=== PATIENT | female | born 1940 | race Caucasian/White ===

== ENCOUNTER → 2021-04-27 14:43 | Outpatient (BNVA) | payer MEDICARE, SELFPAY | PROVIDERS: PCP Internal Medicine; Visit Provider Urology | DX: N20.0 Calculus of kidney (principal) | CPT/HCPCS: 99212 ==

== ENCOUNTER 2025-08-25 11:22 | Outpatient (AMB) | payer MEDICARE, SELFPAY ==
--- NOTE | 2025-08-25 11:36 | MHC.OFFVIS ---
Intake Visit Reasons: 1yr f/u Allergies amoxicillin Allergy (Unknown, Verified 04/27/21 15:34) Rash codeine Allergy (Unknown, Verified 04/27/21 15:34) chest pain penicillin V Allergy (Unknown, Verified 04/27/21 15:34) itchiness Erythromycin Allergy (Unknown, Uncoded 04/27/21 15:34) itchiness Medication List - Last Reconciled 08/25/25 by Ashlee Burnett MD alendronate 70 mg PO QWEEK amlodipine 2.5 mg PO DAILY atorvastatin 40 mg PO DAILY estradiol 0.01%(0.1mg/gram) 1 g vaginal primidone 375 mg PO DAILY HPI Comments Details: This is a 85-year-old woman with mild hypertension who was had tremors in her hands for 20+ years and then , more recently, tremors in her head and jaw which has become quite bothersome. Some days it is fairly quiet and occasionally acts up for no reason an dmay last a couple of days. She's been under the care of Dr. Faith for several years and is currently on primidone 375 mg a day that helps her hands but doesn't help her jaw. Her 65 year old daughter has developed tremors which are worse than hers. There is no family history in her siblings or parents of tremors. The tremor does not actually interfere with her functional ability, but the jaw tremor is embarrassing so she limits her social interactions. She reports no side effects at this dose of primidone. [facility] Medical History (Updated 08/25/25 @ 11:41 by Ashlee Burnett MD) Benign essential tremor Review of Systems Const Details: Sleep:? Difficulty getting to sleep?admits.? Difficulty maintaining sleep?denies?.? Urge to move legs?denies.? Teeth grinding?denies.? Shouting or Kicking during sleep?denies.? Abnormal behavior during sleep?denies.? Excessive sleep?denies.? Snoring?denies.? Daytime sleepiness?denies.? ?? General/Constitutional:? Change in appetite?denies.? Chills?denies.? Fatigue?denies.? Fever?denies.? Weight gain?denies.? Weight loss?denies.? ?? Ophthalmologic:? Blurred vision?denies.? Diminished visual acuity?denies.? ?? ENT:? Stuffiness?denies.? Decreased hearing?denies.? Dry mouth?denies.? Ear pain?denies.? Nosebleed?denies.? Ringing in the ears?denies.? Sinus pain?denies.? Sore throat?denies.? Swollen glands?denies.? ?? Endocrine:? Cold intolerance?denies.? Excessive thirst?denies.? Frequent urination?denies.? Heat intolerance?denies.? ?? Respiratory:? Shortness of breath?denies.? Chest pain?denies.? Cough?denies.? ?? Breast:? Breast lump?denies.? Nipple discharge?denies.? ?? Cardiovascular:? Chest pain at rest?denies.? Chest pain with exertion?denies.? Claudication?denies.? Dizziness?denies.? Fluid accumulation in the legs?denies.? Irregular heartbeat?denies.? Palpitations?denies.? ?? Gastrointestinal:? Abdominal pain?denies.? Constipation?denies.? Diarrhea?denies.? Difficulty swallowing?denies.? Heartburn?denies.? Nausea?denies.? Rectal bleeding?denies.? ?? Hematology:? Easy bruising?denies.? Prolonged bleeding?denies.? ?? Genitourinary:? Frequent urination?denies.? Urgency?denies.? Incontinence?admits.? Erectile Dysfunction?denies.? ?? Musculoskeletal:? Neck pain?admits.? Back pain?admits.? Muscle aches?denies.? Painful joints?denies.? Sciatica?denies.? Weakness?denies.? ?? Podiatric:? Difficulty walking?denies.? Foot numbness?denies.? ?? Neurologic:? Difficulty swallowing?denies.? Balance difficulty?denies.? Coordination?normal.? Difficulty speaking?denies.? Dizziness?denies.? Fainting?denies.? Gait abnormality?denies.? Headache?admits.? Loss of strength?denies.? Loss of use of extremity?denies.? Low back pain?denies.? Memory loss?admits.? Seizures?denies.? Tics?denies.? Tingling/Numbness?denies.? Transient loss of vision?denies.? Tremor?admits.? ?? Psychiatric:? Anxiety?admits.? Auditory/visual hallucinations?denies.? Delusions?denies.? Depressed mood?denies.? Stressors?denies.? Substance abuse?denies.? Suicidal thoughts?denies.? ?? Neuro Reports tremor(s) Physical Exam Neuro Other: Neurological: ? Abnormal neurological findings:?Less prominent side to side jaw tremor with no teeth chatter. Slight head titubation tremor. Tremors of extended upper extremities. fast frequency medium amplitude..? Mental Status:?alert and oriented X 3,?Normal attention, orientation, memory and affect.? Cranial Nerves:?Pupils are equal, round and reactive to light. Fundoscopy shows normal disc bilaterally. External occular muscles are intact. Visual bravo are full, no ptosis. Face is symmetrical, no facial weakness or droop. Facial sensations are normal. Tongue protrudes in midline. Palate elevates symmetrically. Shoulder shrugging is normal..? Motor Examination:?Normal muscle tone, bulk and strength,?No atrophy or fasciculations,?No drift of the extended upper extremities,?Deep tendon reflexes are 2+?,?Plantars are flexor?.? Motor Strength:? Proximal Muscles (out of 5): ?5 ? Distal Muscles (out of 5): ?5 ? Neck Flexors (out of 5): ?5 ? Neck Extensors (out of 5): ?5 ? Deltoid (out of 5): ?5 ? Biceps (out of 5): ?5 ? Triceps (out of 5): ?5 ? Serratus Anterior (out of 5): ?5 ? Wrist Extensors (out of 5): ?5 ? APB (out of 5): ?5 ? Finger Spread (out of 5): ?5 ? Ileopsoas (out of 5): ?5 ? Quadriceps (out of 5): ?5 ? Hamstrings (out of 5): ?5 ? Tibialis Anterior (out of 5): ?5 ? Peronei (out of 5): ?5 ? EDB (out of 5): ?5 ? Gastrocnemius (out of 5): ?5 ? Straight Leg Raising:?90 degrees.? Sensory Exam:?Normal light touch, temperature, pinprick, vibration and joint-position sensations?,?Rhomberg sign is absent.? Coordination:?no ataxia,?no titubation,?[id number], [id number] test and rapid alternating movements were normal.? Gait Exam:?Within normal limits.? Cerebellar Signs:?[id number] and [id number] is normal,?no dysdiadochokinesia?.? Extrapyramidal System:?Tremor asdescribed above, no? rigidity with normal facial expressions,?No bradykinesia, no bradyphrenia. Normal arm swing and posture. No propulsion or retropulsion.? Speech:?Normal,?no dysphasia or dysarthria..? Mini Mental Status Exam: ? Level of Consciousness:?Alert.? Orientation:?Knows correct year, month, date, day and season,?Knows correct city, county and state. Knows correct location and floor.? Registration:?Able to register 3 objects.? Attention:?Serial 7's performed accurately.? Recall:?Able to recall 3 out of 3 objects.? Language:?Normal spontaneous speech, fluency, repetition,naming, comprehension, reading and writing.? Total Score:?30/30.? Assessment & Plan Assessment & Plan (1) Benign essential tremor: Code(s): G25.0 - Essential tremor Category: Medical Plan Continue Primidone 250mg 1.5 tabs daily. Medications: New primidone 375 mg (1.5 x 250 mg) PO DAILY 135 tabs 3RF 90 days Coding Level of Care Code Est Pt Level 4 (69159) Diagnoses Benign essential tremor G25.0
--- OUTSIDE RECORDS SUMMARY | 2025-08-25 15:03 | XMS_ITS | Data Portability ---
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 Luque. She reports gradual right-sided hearing loss. Right PE tube removed from external auditory canal. Right TM is intact and retracted. Right middle ear with serous effusion, confirmed with tympanometry. Left TM is normal to inspection. Audiometric testing demonstrates right-sided mild sloping to profound mixed hearing loss. Patient is medically cleared for amplification bilaterally, but is not interested at this time. Recommend trial of intranasal fluticasone and auto insufflation. Patient will follow-up for reevaluation with Dr. Luque, as she may benefit from right myringotomy tube tube replacement. dori Not available 03/30/2025 12:34:46 06/26/2025 06/26/2025 Tube replacement was performed on the right. I did attempt T-tube placement given the short-lived nature of her last couple tubes but she did not tolerate it well. She has some eardrops at home which she will use for the next few days. Follow-up in a month if her hearing is suboptimally improved - though she did note improvement after the procedure today - otherwise 6 months. deandra Not available 06/26/2025 12:39:15 Plan of Treatment Reminders Order Date Submit Date Provider Last Modified By Organization Details Last Modified Time Details Appointments Establish ed 15 2025 11:30A CAMERON RIVAS Not available Not available Not available Lab None recorded. Referral None recorded. Procedures None recorded. Surgeries None recorded. Imaging None recorded. Medication Orders fluticaso ne propionat e 50 mcg/actua tion nasal spray,paul pension 2024 025 [facility] [id number], [address] , [place], [place], [phone], 03/30/2025 11:36:29 Patient TargetsNo targets recorded. Patient InstructionsNo instructions recorded. Reason for Referral None Reported. Results Created Date Observation Date Name Description Value Unit Range Abnormal Flag Note LastModifiedBy Organization Detail LastModifiedTime 03/31/20 audio gram No observ ation record ed. BARCODE Not Available 2024 09:42:27 08/07/20 25 audio gram No observ ation record ed. BARCODE Not Available 2024 15:14:06 Result Notes None recorded. Problems Name Problem SNOMED Code Status Onset Date Resolution Date Notes Provider Name and Address Organization Details Recorded Time Bilateral disorder of Eustachia n tubes 30873857684 29947 Active 2017 Other specified disorders of Eustachia n tube, bilateral ; Note: Date Diagnosed : 8 10:37 AM (H69.83) Not Available [facility] 4 02:56:23 Impacted cerumen in right ear 33662782691 77472 Active 2017 Impacted cerumen, right ear; Note: Date Diagnosed : 8 10:31 AM (H61.21) Not Available [facility] 4 02:56:22 Disorder of right Eustachia n tube 83691846172 38437 Active 2020 Other specified disorders of Eustachia n tube, right ear; Note: Date Diagnosed : 01/20/2021 1:26 PM (H69.81) Not Available [facility] 4 02:56:24 Mixed conductiv e and sensorine ural hearing loss of right ear 30661830018 105 Active 2020 Mixed conductiv e and sensorine ural hearing loss, unilatera l, right ear with restricte d hearing on the contralat eral side; Note: Date Diagnosed : 01/20/2021 1:26 PM (H90.A31) CARLOS EDUARDO LUQUE MD [address] [place],[address], [place], [address] , [place] - [facility] 5 11:19:47 Sensorine ural hearing 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 ear 28674670254 109 Active 2020 Sensorine ural hearing loss, unilatera l, left ear, with restricte d hearing on the contralat eral side; Note: Date Diagnosed : 01/20/2021 1:26 PM (H90.A22) Not Available [facility] 4 02:56:20 Sensorine ural hearing loss of bilateral ears 654758032 Active 2022 Sensorine ural hearing loss, bilateral ; Note: Date Diagnosed : 3 1:45 PM (H90.3) Not Available [facility] 4 02:56:22 Mixed conductiv e AND sensorine ural hearing loss 99899479 Active 2023 ELSA GARZA, AUD [address], [place], [place], [address] , [place] - [facility] 4 13:49:29 Sensorine ural hearing loss 86779684 Active 2023 ELSA GARZA, AUD [address], [place], [place], [address] , [place] - [facility] 4 13:50:37 Acute serous otitis media of right ear 92492024488 91237 Active 2023 Randy darnell [place] - [facility] 4 15:07:48 Chronic serous otitis media of right ear 005669034 Active 2023 CARLOS EDUARDO LUQUE MD [address], [place], [address] , [place] - [facility] 5 11:19:51 Sensorine ural hearing loss of bilateral ears 636594767 Active 2023 Johanna darnell [place] - [facility] 10:52:55 Problem Notes None recorded. Procedures Surgical History Date Name Laterality Status Provider Name and Address Organization Details Recorded Time 08/07/20 25 Air only Audio - 66704 completed JUSTICE HERMAN [address] [facility] [place],[address] [place] [address], [address], [place] - [facility] 08/07/2025 11:36:21 08/07/20 25 Tympanometry - 91989 completed JUSTICE HERMAN [address] [facility] [place],[address] [place] [address], [address], [place] - [facility] 08/07/2025 11:36:26 06/26/20 25 Myringotomy w/Placement of Tube right completed CARLOS EDUARDO LUQUE MD [address] [facility],[address], [address], [place] - [facility] 06/26/2025 12:38:03 03/30/20 25 Air only Audio - 23412 completed JUSTICE HERMAN [address] [facility],[address], [address], [place] - [facility] 03/30/2025 11:07:55 03/30/20 25 Tympanometry - 94836 completed JUSTICE HERMAN [address] [facility],[address], [address], [place] - [facility] 03/30/2025 11:08:01 09/29/20 24 Air & Speech Audio with Tymps - 48342, 06746 & 84795 completed Johanna Sanchez [place] - [facility] 09/29/2024 10:52:26 09/01/20 24 Myringotomy w/Placement of Tube right completed CARLOS EDUARDO LUQUE MD [address] [facility],[address], [address], [place] - [facility] 09/01/2024 10:42:38 06/20/20 24 Comp Audio with Tymps - 50195 & 90506 completed JUSTICE TIM [address] [facility],[address], [address], [place] - [facility] 06/20/2024 13:49:16 Imaging Results None recorded. Procedure Notes None recorded. Medical Equipment None Reported. Allergies Allergen ID Allergen Name Allergen Category Reaction Reaction Severity Criticality Documentation Date Start Date Code Code System Note Provider Name and Address Organization Details Recorded Time 818682 amoxicill in medicatio n other Not available Not available 02/12/2024 723 RxNorm React ion: unkno wn, unspe cifie d;; Not Available [facility] 4 01:17:07 745961 penicilli n V potassium medicatio n other Not available Not available 02/12/2024 10561 5 RxNorm React ion: unkno wn, unspe cifie d;; Not Available [facility] 4 01:17:08 806948 codeine sulfate medicatio n other Not available Not available 02/12/2024 13352 RxNorm React ion: unkno wn, unspe cifie d;; Not Available [facility] 4 01:17:08 Medications Name Sig Start Date Stop Date Status Note LastModified by Organization Details LastModified Time atorvasta tin 40 mg tablet TAKE 1 TABLET BY MOUTH DAILY active Not Available Not Available No t Available primidone 50 mg tablet 06/20 completed Medicati on ID: [id number] D uration Value: 30 Brand Name: primidon e Send Method: E-Prescr ibed Sub s Allowed: subs OK Speci al Instruct ion: TAKE 1/2 TABLET AT BEDTIME, INCREASE BY 1/2 TABLET AT BEDTIME WEEKLY U P TO 2 TABS AT BEDTIME Medicati onGeneri cName: primidon e Not Available Not Available Not Available ketoconaz ole 2 % shampoo LATHER INTO FACE AND SCALP. LET SIT FOR 5 MINUTES THEN RINSE. USE EVERY OTHER DAY NEEDED FOR MAINTENA NCE. active Not Available Not Available No t Available ofloxacin 0.3 % eye drops Apply 06/20 completed Medicati on ID: [id number] B rand Name: ofloxaci n Send Method: E-Prescr ibed Sub s Allowed: subs OK Speci al Instruct ion: apply 5 drops to each ear BID x 3 days Med icationG enericNa me: ofloxaci n Not Available Not Available Not Available alendrona te 70 mg tablet TAKE 1 TABLET BY MOUTH ONCE WEEKLY 30 MINUTES BEFORE FIRST FOOD OR BEVERAGE OR MEDICINE OF THE DAY WITH WATER active Not Available Not Available No t Available fluoroura cil 5 % topical cream APPLY TO RED SCALY LESIONS ON NOSE TWICE DAILY FOR 2 WEEKS EXPECT REDNESS AND IRRITATI ON 06/26 completed Not Available Not Available Not Available Kevin Low Dose Aspirin 81 mg tablet,de layed release 2017 active Medicati on ID: [id number] B rand Name: Aspirin Low Dose Sen d Method: E-Prescr ibed Sub s Allowed: subs OK Medic ationGen ericName : Aspirin Low Dose Not Available Not Available Not Available amlodipin e 2.5 mg tablet TAKE 1 TABLET BY MOUTH EVERY DAY active Not Available Not Available No t Available simvastat in 40 mg tablet 05/04 completed Medicati on ID: [id number] D uration Value: 90 Brand Name: simvasta tin Send Method: E-Prescr ibed Sub s Allowed: subs OK Speci al Instruct ion: TAKE 1 TABLET BY MOUTH EVERY DAY Medi cationGe nericNam e: simvasta tin Not Available Not Available Not Available ofloxacin 0.3 % ear drops Instill 5 drops twice a day by otic route for 3 days. 06/26 completed Not Available Not Available Not Available primidone 250 mg tablet TAKE 1 AND 1/2 TABLETS BY MOUTH DAILY active Not Available Not Available No t Available fluocinon randall 0.05 % topical solution APPLY TOPICALL Y TO THE SCALP 1 TO 2 TIMES DAILY FOR FLAKING 06/26 completed Not Available Not Available Not Available estradiol 0.01% (0.1 mg/gram) vaginal cream USE 1 GRAM VAGINALL Y 2 TO 3 TIMES WEEKLY AT BEDTIME active Not Available Not Available No t Available fluticaso ne propionat e 50 mcg/actua tion nasal spray,paul pension INSTILL 2 SPRAYS INTO EACH NOSTRIL EVERY DAY active Not Available Not Available No t Available betametha sone dipropion ate 0.05 % lotion 06/26 completed Not Available Not Available Not Available Vitamin D3 25 mcg (1,000 unit) capsule 06/20 completed Medicati on ID: [id number] B rand Name: Vitamin D3 Send Method: E-Prescr ibed Sub s Allowed: subs OK Medic ationGen ericName : Vitamin D3 Not Available Not Available Not Available nitrofura ntoin monohydra te/macroc rystals 100 mg capsule TAKE 1 CAPSULE BY MOUTH TWICE DAILY FOR 5 DAYS 08/04 completed Not Available Not Available Not Available primidone 125 mg tablet active Not Available Not Available Not Available Vitals Date Recorded Body height Body mass index (BMI) Body weight Provider Name and Address Organization Details Last Updated DateTime 06/26/2025 154.94 cm 21.9 kg/m2 76818.71 g Roula Gibson [place] - [facility] 06/26/2025 11:21:24 Social History None recorded. Functional Status None recorded. Mental Status None recorded. Family History Nothing Reported. Medical History No medical history recorded. Gynecological HistoryNo gynecological history recorded. Obstetrics History GPAL:G 0 P 0 0 0 0 Past Encounters Encounter ID Performer Location Encounter Start Date Encounter Closed Date Diagnosis/Indication Diagnosis SNOMED-CT Code Diagnosis ICD10 Code Diagnosis IMO Codes Diagnosis Note [id number] RANDY SELBY PA-C [facility] [address] [address] 06/20/2024 12:33:01 06/20/2024 14:16:37 Bilateral disorder of Eustachian tubes 5217068720 803311 H69.83 Mixed cond uctive and sensorineural hearing loss of right ear 9005581175 9105 H90.A31 Sensorineu ral hearing 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 ear 6513928211 9109 H90.A22 Acute sero us otitis media of right ear 5832250335 032613 H65.01 [id number] JUSTICE TIM [facility] [address] [address] 06/20/2024 13:48:50 06/23/2024 07:04:21 Mixed conductive AND sensorineural hearing loss 20542379 H90.A31 Audiologic al evaluation results:Ri ght ear:Mild to moderately -severe mixed hearing loss with excellent word recognitio n.Left ear:Normal sloping to severe sensorineu ral hearing loss with excellent word recognitio n.Tympanom etry:Right Ear:Type ALeft Ear:Type C Sensorineu ral hearing loss 17371077 H90.A22 [id number] CARLOS EDUARDO LUQUE MD [facility] [address] [address] 09/01/2024 08:56:10 09/01/2024 09:24:36 Disorder of right Eustachian tube 3069243284 128488 H69.91 Mixed cond uctive and sensorineural hearing loss of right ear 7549232379 9105 H90.A31 Chronic se sakshi otitis media of right ear 713280222 H65.21 [id number] EVELINE FERREIRA PA-C [facility] [address] [address] 09/29/2024 10:22:36 09/29/2024 11:18:22 Chronic serous otitis media of right ear 704565341 H65.21 Disorder o f right Eustachian tube 6266681860 945012 H69.91 Sensorineu ral hearing loss of bilateral ears 796424903 H90.3 [id number] JUSTICE TIM [facility] [address] [address] 09/29/2024 10:51:49 10/04/2024 08:04:50 Disorder of right Eustachian tube 6169036652 498549 H69.91 Sensorineu ral hearing loss of bilateral ears 622465535 H90.3 Audiologic al evaluation results: Right ear: Normal through 1 kHz sloping to severe sensorineu ral hearing loss with excellent word recognitio n. Tympanomet ry: Right Ear:Type B with large volume Left Ear:Type C [id number] EVELINE FERREIRA PA-C [facility] [address] [address] 03/30/2025 10:29:11 03/30/2025 11:29:06 Sensorineural hearing loss of bilateral ears 354860938 H90.3 Audiologic al evaluation results: Right ear:Mild sloping to profound mixed hearing loss. Left ear:Normal sloping to severe sensorineu ral hearing loss. Tympanomet ry:Right Ear: Type BLeft Ear: Type A Disorder o f right Eustachian tube 8825113273 635599 H69.91 [id number] JUSTICE HERMAN [facility] [address] [address] 03/30/2025 11:07:15 04/06/2025 13:41:59 Mixed conductive and sensorineural hearing loss of right ear 4661542483 9105 H90.A31 Audiologic al evaluation results: Right ear: Mild sloping to profound mixed hearing loss. Left ear: Normal sloping to severe sensorineu ral hearing loss. Tympanomet ry: Right Ear:Type B Left Ear:Type A [id number] CARLOS EDUARDO LUQUE MD [facility] [address] [address] 06/26/2025 11:13:39 06/26/2025 11:40:32 Mixed conductive and sensorineural hearing loss of right ear 9642319684 9105 H90.A31 Chronic se sakshi otitis media of right ear 181882707 H65.21 [id number] CARLOS EDUARDO LUQUE MD [facility] [address] [address] 08/07/2025 10:45:56 08/07/2025 11:43:06 Disorder of right Eustachian tube 8703791227 930046 H69.91 85-year-ol d female presents today for follow-up. Right tube is in place and patent. Thresholds are now similar to the left. She is a borderline candidate for amplificat ion but feels she is doing well. Follow-up in 6 months. Sensorineu ral hearing loss of bilateral ears 599798682 H90.3 Audiologic al evaluation results: Right ear: Normal sloping to severe sensorineu ral hearing loss. Tympanomet ry: Right Ear:Type B with large volume [id number] JUSTICE HERMAN [facility] [address] [address] 08/07/2025 10:46:15 08/07/2025 13:58:14 Sensorineural hearing loss of bilateral ears 179274050 H90.3 Audiologic al evaluation results: Right ear: Normal sloping to severe sensorineu ral hearing loss. Tympanomet ry: Right Ear:Type B with large volume Health Concerns Section Related Observation LastModified by Organization Detai ls LastModified Time None Recorded Concern Status LastModified by Organization Details LastModified Time None Recorded Advance Directives Directive None Recorded Payers Insurance Date Sequence Insurance Name Policy Number Policy Johnson Covered Member ID Johnson Member ID Guarantor Name 08/17/2025 2 [employer] (MEDICARE SUPPLEMENT) Estelle Michael Bradly [id number] Estelle Abdullahi 08/17/2025 1 [place]IC[place] B-[place] [employer] Estelle Abdullahi [id number] Estelle Abdullahi Notes Date Note Type Note Provider Name and Address Organization Details Recorded Time 03/30/2025 text/html ROS as noted in the HPI 85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 Luque. She reports gradual right-sided hearing loss. Denies ear pain or drainage. CARLOS EDUARDO LUQUE MD [address] [place] [address], [address], [facility] - [facility] 03/31/2025 09:47:05 06/26/2025 text/html She has had tubes placed in 2020, May 2023, August 2024. She was last seen a couple months ago and noted to have an extruded tube and recurrence of the middle ear effusion. She is not hearing well on the right. CARLOS EDUARDO LUQUE MD [address] [place] [address],[address], [address], [facility] 06/26/2025 12:39:30 08/07/2025 text/html She feels much improved. Does not feel that the hearing is equivalent to the left. PV: She has had tubes placed in 2020, May 2023, August 2024. She was last seen a couple months ago and noted to have an extruded tube and recurrence of the middle ear effusion. She is not hearing well on the right. CARLOS EDUARDO LUQUE MD [address] [address], [place], [address], [facility] - [facility] 08/07/2025 11:45:08 OBGyn Episode No OBEpisode recorded.
--- OUTSIDE RECORDS SUMMARY | 2025-08-25 15:03 | XMS_ITS | Continuity of Care Document ---
Author Organization [place] - [facility], [facility] Address [address] [place] [address] Care Team Providers Care Child Welfare Consultant Name Role Phone LV [place] Primary Care Provider Assessment No assessment recorded. Plan of Treatment Reminders Order Date Submit Date Provider Last Modified By Organization Details Last Modified Time Details Appointments Establish ed 15 2025 11:30A M CAMERON LEY Not available Not available Not available Lab None recorded. Referral None recorded. Procedures None recorded. Surgeries None recorded. Imaging None recorded. Medication Orders None recorded. Patient TargetsNo targets recorded. Patient InstructionsNo instructions recorded. Reason for Referral None Reported. Results Created Date Observation Date Name Description Value Unit Range Abnormal Flag Note LastModifiedBy Organization Detail LastModifiedTime 08/07/20 25 audio gram No observ ation record ed. BARCODE Not Available 2024 15:14:06 Result Notes None recorded. Problems Name Problem SNOMED Code Status Onset Date Resolution Date Notes Provider Name and Address Organization Details Recorded Time Bilateral disorder of Eustachia n tubes 87626735649 02812 Active 2017 Other specified disorders of Eustachia n tube, bilateral ; Note: Date Diagnosed : 8 10:37 AM (H69.83) Not Available [facility] 4 02:56:23 Impacted cerumen in right ear 79933912581 Active 2017 Impacted cerumen, right ear; Note: Date Diagnosed : 8 10:31 AM (H61.21) Not Available [facility] 4 02:56:22 Disorder of right Eustachia n tube 81077216056 97756 Active 2020 Other specified disorders of Eustachia n tube, right ear; Note: Date Diagnosed : 01/20/2021 1:26 PM (H69.81) Not Available [facility] 4 02:56:24 Mixed conductiv e and sensorine ural hearing loss of right ear 20712576545 105 Active 2020 Mixed conductiv e and sensorine ural hearing loss, unilatera l, right ear with restricte d hearing on the contralat eral side; Note: Date Diagnosed : 01/20/2021 1:26 PM (H90.A31) CARLOS EDUARDO LUQUE MD [address] [facility],[place] [address], [place], [address] , [place] - [facility] 5 11:19:47 Sensorine ural hearing 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 ear 20644825702 109 Active 2020 Sensorine ural hearing loss, unilatera l, left ear, with restricte d hearing on the contralat eral side; Note: Date Diagnosed : 01/20/2021 1:26 PM (H90.A22) Not Available [facility] 4 02:56:20 Sensorine ural hearing loss of bilateral ears 995288142 Active 2022 Sensorine ural hearing loss, bilateral ; Note: Date Diagnosed : 3 1:45 PM (H90.3) Not Available [facility] 4 02:56:22 Mixed conductiv e AND sensorine ural hearing loss 92263151 Active 2023 ELSA GARZA, JUSTICE [address] [facility],[place] [address], [place], [address] , [place] - [facility] 4 13:49:29 Sensorine ural hearing loss 86533841 Active 2023 ELSA GARZA, AUD [address] [facility],[place] [address], [place], [address] , [facility] - [facility] 4 13:50:37 Acute serous otitis media of right ear 32143399906 18093 Active 2023 Venus darnell [place] - [facility] 4 15:07:48 Chronic serous otitis media of right ear 959519194 Active 2023 CARLOS EDUARDO LUQUE MD [address] [place] [address],[address], [address] , [facility] - [facility] 5 11:19:51 Sensorine ural hearing loss of bilateral ears 349172657 Active 2023 Johanna darnell [place] - [facility] 4 10:52:55 Problem Notes None recorded. Procedures Surgical History Date Name Laterality Status Provider Name and Address Organization Details Recorded Time 08/07/20 25 Air only Audio - 65561 completed JUSTICE HERMAN [address] [place] [address],[address], [address], [facility] - [facility] 08/07/2025 11:36:21 08/07/20 25 Tympanometry - 92158 completed JUSTICE HERMAN [address] [place] [address],[address], [address], [facility] - [facility] 08/07/2025 11:36:26 06/26/20 25 Myringotomy w/Placement of Tube right completed CARLOS EDUARDO LUQUE MD [address] [facility],[address], [address], [facility] - [facility] 06/26/2025 12:38:03 03/30/20 25 Air only Audio - 06831 completed JUSTICE HERMAN [address] [facility],[address], [address], [facility] - [facility] 03/30/2025 11:07:55 03/30/20 25 Tympanometry - 56772 completed ABHINAV LANDAVERDE AUD [address] [facility],[address], [address], [facility] - [facility] 03/30/2025 11:08:01 09/29/20 24 Air & Speech Audio with Tymps - 01401, 80707 & 13699 completed Johanna Sanchez [place] - [facility] 09/29/2024 10:52:26 09/01/20 24 Myringotomy w/Placement of Tube right completed CARLOS EDUARDO LUQUE MD [address] [facility], [place], [address], [place] - [facility] 09/01/2024 10:42:38 06/20/20 24 Comp Audio with Tymps - 15487 & 18665 completed JUSTICE TIM [address] [facility], [place], [address], [place] - [facility] 06/20/2024 13:49:16 Imaging Results None recorded. Procedure Notes None recorded. Medical Equipment None Reported. Allergies Allergen ID Allergen Name Allergen Category Reaction Reaction Severity Criticality Documentation Date Start Date Code Code System Note Provider Name and Address Organization Details Recorded Time 881255 amoxicill in medicatio n other Not available Not available 02/12/2024 723 RxNorm React ion: unkno wn, unspe cifie d;; Not Available [facility] 4 01:17:07 232127 penicilli n V potassium medicatio n other Not available Not available 02/12/2024 01934 5 RxNorm React ion: unkno wn, unspe cifie d;; Not Available [facility] 4 01:17:08 740713 codeine sulfate medicatio n other Not available Not available 02/12/2024 24219 RxNorm React ion: unkno wn, unspe cifie d;; Not Available [facility] 4 01:17:08 Medications Name Sig Start Date Stop Date Status Note LastModified by Organization Details LastModified Time atorvasta tin 40 mg tablet TAKE 1 TABLET BY MOUTH DAILY active Not Available Not Available No t Available primidone 50 mg tablet 06/20 completed Medicati on ID: 590657 D uration Value: 30 Brand Name: primidon [...] drops Apply 06/20 completed Medicati on ID: 471787 B rand Name: ofloxaci n Send Method: [...] layed release 2017 active Medicati on ID: 876160 B rand Name: Aspirin Low Dose Sen d Method: E-Prescr ibed Sub s Allowed: subs OK Medic ationGen ericName : Aspirin Low Dose Not Available Not Available Not Available amlodipin e 2.5 mg tablet TAKE 1 TABLET BY MOUTH EVERY DAY active Not Available Not Available No t Available simvastat in 40 mg tablet 05/04 completed Medicati on ID: 357420 D uration Value: 90 Brand Name: simvasta [...] unit) capsule 06/20 completed Medicati on ID: 642921 B rand Name: Vitamin D3 Send Method: [...] Not Available Not Available Not Available Vitals None Recorded Social History None recorded. Functional Status None recorded. Mental Status None recorded. Family History Nothing Reported. Medical History No medical history recorded. Gynecological HistoryNo gynecological history recorded. Obstetrics History GPAL:G 0 P 0 0 0 0 Past Encounters Encounter ID Performer Location Encounter Start Date Encounter Closed Date Diagnosis/Indication Diagnosis SNOMED-CT Code Diagnosis ICD10 Code Diagnosis IMO Codes Diagnosis Note [id number] CARLOS EDUARDO LUQUE MD [facility] [address] [address] 08/07/2025 10:45:56 08/07/2025 11:43:06 Disorder of right Eustachian tube [id number] 468998 H69.91 85-year-ol d female presents today for follow-up. Right tube is in place and patent. Thresholds are now similar to the left. She is a borderline candidate for amplificat ion but feels she is doing well. Follow-up in 6 months. Sensorineu ral hearing loss of bilateral ears 138082484 H90.3 Audiologic al evaluation results: Right ear: Normal sloping to severe sensorineu ral hearing loss. Tympanomet ry: Right Ear:Type B with large volume [id number] JUSTICE HERMAN [facility] [address] [address] 08/07/2025 10:46:15 08/07/2025 13:58:14 Sensorineural hearing loss of bilateral ears 632705978 H90.3 Audiologic al evaluation results: Right ear: Normal sloping to severe sensorineu ral hearing loss. Tympanomet ry: Right Ear:Type B with large volume Health Concerns Section Related Observation LastModified by Organization Detai ls LastModified Time None Recorded Concern Status LastModified by Organization Details LastModified Time None Recorded Payers Encounter Date Sequence Insurance Name Policy Number Policy Johnson Covered Member ID Johnson Member ID Guarantor Name 08/07/2025 2 AARP (MEDICARE SUPPLEMENT) Estelle Abdullahi [id number] Estelle Abdullahi 08/07/2025 1 [place] [employer] Estelle Abdullahi [id number] Estelle Abdullahi Notes Date Note Type Note Provider Name and Address Organization Details Recorded Time 08/07/2025 text/html She feels much improved. Does not feel that the hearing is equivalent to the left. PV: She has had tubes placed in 2020, May 2023, August 2024. She was last seen a couple months ago and noted to have an extruded tube and recurrence of the middle ear effusion. She is not hearing well on the right. CARLOS EDUARDO LUQUE MD [address] [place] [address], [address], [facility] - [facility] 08/07/2025 11:45:08 OBGyn Episode No OBEpisode recorded.
--- OUTSIDE RECORDS SUMMARY | 2025-08-25 15:03 | XMS_ITS | Data Portability ---
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 Plan: Right thumb CMC joint injection is performed. She will continue with activities as tolerated and follow-up for this problem on an as-needed basis. 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 She will continue with activities as tolerated and follow-up for this problem on an as-needed basis. [email or web address] Not available 02/09/2025 11:21:39 Plan of Treatment Reminders Order Date Submit Date Provider Last Modified By Organization Details Last Modified Time Details Appointments RECHEC K 15 2024 02:30P M Gia cedillo MD Not available Not available Not available Lab None record ed. Referral None record ed. Procedures None record ed. Surgeries None record ed. Imaging XR, hand, 3 or more view - room 3- 3V R TMJ 2024 025 [facility], [address], [facility] [address], [place], [address], 02/11/2025 15:43:19 XR, finger (s), 2 or more view - 3 views right thumb plus eaton room 1 2023 Jude patel Not available 01/21/2024 11:06:05 Medication Orders None record ed. Patient TargetsNo targets recorded. Patient InstructionsNo instructions recorded. Reason for Referral None Reported. Results Created Date Observation Date Name Description Value Unit Range Abnormal Flag Note LastModifiedBy Organization Detail LastModifiedTime 02/10/20 25 02/09/2025 XR, hand, 3 or more view http:/ [email or web address] ?Encry pted=s hAaTro YD8dLq bEUv6g %2BXZw aYqtaq 0bqfl% 2Fg9IQ a4ajBk vP9nXo QUaueC m3YtLR FvZlgJ JJ8mAn HZtai3 2z8856 AC0Kla nWMWKO hKiQtr MwF INTERFACE [facility] Office [address], [address], 02/09/2025 11:08:09 02/10/20 25 02/09/2025 XR, hand, 3 or more view http:/ [email or web address] ?Encry pted=s hAaTro YD8dLq bEUv6g %2BXZw aYqtaq 0bqfl% 2Fg9IQ a4ajBk vP9nXo QUaueC m3YtLR FvZlgJ JJ8mAn HZtai3 5f0871 AC0Kla nWMWKO hKiQtr MwF INTERFACE [facility] Office [address] [facility] [address], [place], [address], 02/09/2025 11:08:11 Result Notes Documentation Provider Name and Address Organization Details Recorded Time Xr, Hand, 3 Or More View : [email or web address] Encrypted=axDkXhvGK9lTwzQ Uv6g%1XVSieWdwjt1mukz%2Fg 7YAv8xeSmvH6xNiSFcouKp7Xa QRCiVfhBUG8qZgQSxub07z720 0SX2MngkLTZTHlCxJqcRyT Not Available [facility] 02/09/2025 11:08: 10 Xr, Hand, 3 Or More View : [email or web address] Encrypted=mvBkWhxHN3bSniR Uv6g%4SMOcqWhkwe7gxdm%2Fg 9WTr2vhRyuO2vEoBMcddQg1Hj IDKxUtpESV8rOmGJnrt38r937 1VW4HgbzVBWIFxPsMwyVgD Not Available [facility] 02/09/2025 11:08: 11 Procedures Surgical History Date Name Laterality Status Provider Name and Address Organization Details Recorded Time 5 JZCMC Inj completed Gia Jack MD [address] [facility] [address] [facility], [place], [address], [facility] 02/09/2025 11:20:40 4 Wrist Joint Kenalog Injection, L/R completed Gia Jack MD [address] [facility] [address] [facility], [place], [address], [facility] 01/21/2024 11:02:03 Imaging Results None recorded. Procedure Notes None recorded. Medical Equipment None Reported. Allergies Allergen ID Allergen Name Allergen Category Reaction Reaction Severity Criticality Documentation Date Start Date Code Code System Note Provider Name and Address Organization Details Recorded Time 013836 Product containin g penicilli n (product) medicatio n Not available Not available Not available 01/21/2024 95320 8001 SNOMED PUJA darnell [facility] 4 10:43:24 236888 amoxicill in medicatio n Not available Not available Not available 01/21/2024 723 RxNorm PUJA GARRIDO [facility] 4 10:43:32 207387 erythromy vaughn medicatio n Not available Not available Not available 01/21/2024 4053 RxNorm PUJA darnell [facility] 4 10:43:42 Medications Name Sig Start Date Stop Date Status Note LastModified by Organization Details LastModified Time atorvastatin 40 mg tablet TAKE 1 TABLET BY MOUTH DAILY active Not Available Not Available No t Available ketoconazole 2 % shampoo LATHER INTO FACE AND SCALP. LET SIT FOR 5 MINUTES THEN RINSE. USE EVERY OTHER DAY NEEDED FOR MAINTENANC E. active Not Available Not Available No t Available ofloxacin 0.3 % eye drops INSTILL 5 DROPS INTO EACH EAR TWICE DAILY FOR 3 DAYS active Not Available Not Available No t Available alendronate 70 mg tablet TAKE 1 TABLET BY MOUTH ONCE WEEKLY 30 MINUTES BEFORE FIRST FOOD OR BEVERAGE OR MEDICINE OF THE DAY WITH WATER active Not Available Not Available N ot Available amlodipine 2.5 mg tablet TAKE 1 TABLET BY MOUTH EVERY DAY active Not Available Not Available No t Available ofloxacin 0.3 % ear drops INSTILL 5 DROPS TO AFFECTED EAR TWICE DAILY FOR 3 DAYS active Not Available Not Available No t Available primidone 250 mg tablet TAKE 1 AND 1/2 TABLETS BY MOUTH DAILY active Not Available Not Available No t Available fluocinonide 0.05 % topical solution APPLY TOPICALLY TO THE SCALP 1 TO 2 TIMES DAILY FOR FLAKING active Not Available Not Available No t Available betamethasone dipropionate 0.05 % lotion APPLY TO THE AFFECTED AREA OF THE SCALP TWICE DAILY NEEDED FOR UP TO 2 WEEKS AT A TIME active Not Available Not Available No t Available nitrofurantoi n monohydrate/m acrocrystals 100 mg capsule TAKE 1 CAPSULE BY MOUTH EVERY 12 HOURS FOR 7 DAYS active Not Available Not Available No t Available primidone 125 mg tablet TAKE 1 TABLET BY MOUTH DAILY active Not Available Not Available No t Available Vitals Date Recorded Body height Body mass index (BMI) Body weight Provider Name and Address Organization Details Last Updated DateTime 01/21/2024 154.94 cm 21.2 kg/m2 97588.35 g PUJA GARRIDO [facility] 01/21/2024 10:43:12 Date Recorded Body height Body mass index (BMI) Body weight Provider Name and Address Organization Details Last Updated DateTime 02/09/2025 154.94 cm 21.9 kg/m2 50197.71 g BEN GRAHAM [facility] 02/09/2025 10:59:21 Social History None recorded. Functional Status None recorded. Mental Status None recorded. Family History Nothing Reported. Medical History No medical history recorded. Gynecological HistoryNo gynecological history recorded. 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 35983397 M18.9 Health Concerns Section Related Observation LastModified by Organization Detai ls LastModified Time None Recorded Concern Status LastModified by Organization Details LastModified Time None Recorded Advance Directives Directive None Recorded Payers Insurance Date Sequence Insurance Name Policy Number Policy Johnson Covered Member ID Johnson Member ID Guarantor Name 02/09/2025 1 [place] [employer] Estelle Abdullahi [id number] Estelle Capellansisg 02/09/2025 2 AARP (MEDICARE SUPPLEMENT) Estelle Hoffmannmasian [id number] Estelle Hoffmannmasian Notes Date Note Type Note Provider Name and Address Organization Details Recorded Time 01/21/2024 text/html ROS as noted in the HPI Patient is a pleasant 84-year-old lvgbw-qdhx-tissf ant female seen in follow-up for right thumb CMC arthritis. Initial evaluation was in 2019 when a cortisone injection was performed. She had a good response to that injection. She would like to try that again. She is hoping to return to golfing. She is also taking curcumin which she finds is helping her joint pains as well. Gia Jack MD [address] [place] [address] [address], [place], [address], [facility] 01/21/2024 11:03:17 02/09/2025 text/html ROS as noted in the HPI Patient is a pleasant 84-year-old upocf-sqzh-hivsm ant female seen in follow-up for right thumb CMC arthritis. Last seen in December 2023 for cortisone injection. Initial evaluation was in 2019 when a cortisone injection was performed. She had a good response to that injection. She would like to try that again. She is hoping to return to golfing. Gia Jack MD [address] [place] [address] [address], [place], [address], [facility] 02/09/2025 11:22:30 OBGyn Episode No OBEpisode recorded.
--- OUTSIDE RECORDS SUMMARY | 2025-08-25 15:03 | XMS_ITS | Clinical Summary ---
Author Organization [facility] Address [address] [place] [address] Phone Care Team Providers Care Reed Man Name Role Phone Obdulio Colorado MD Primary Care Provider Encounters Date Type Department Care Team Description 07/16/2025 4:04 PM EDT - 07/16/2025 11:59 PM EDT Hospital Encounter [facility] MRI [address] [place] [phone] Neck pain Discharge Disposition: Home or Self Care 06/30/2025 Telephone Gastroenterology - [address] [phone] Naveen Ingram MD from Last 3 Months Family History Medical History Relation Name Comments Breast cancer Daughter Relation Name Status Comments Daughter Social History Tobacco Use Types Packs/Day Years Used Date Smoking Tobacco: Never Assessed Comments No Sex and Gender Information Value Date Recorded Sex Assigned at Female 08/01/2024 3:31 PM EDT Legal Sex Female 4:25 PM EST Gender Identity Female 08/01/2024 3:31 PM EDT Sexual Orientation Straight 08/01/2024 3: 31 PM EDT Obstetrics History Para Term AB IAB SAB Ectopic Multiple Livin g Live Births 3 Last Filed Vital Signs Vital Sign Reading Time Taken Comments Blood Pressure - - Pulse - - Temperature - - Respiratory Rate - - Oxygen Saturation - - Inhaled Oxygen Concentration - - Weight 52.2 kg (115 lb) 09/11/2024 11:21 AM EST Height 154.9 cm (5' 1 ) 09/11/2024 11:21 AM EST Body Mass Index 21.73 09/11/2024 11:21 AM EST Plan of Treatment Upcoming Encounters Date Type Department Care Team (Late st Contact Info) Description 09/14/2025 11:00 AM EST [facility]ointment [facility] [address] [phone] Health Maintenance Due Date Last Done Comments DTaP,Tdap,and Td Vaccines (1 - Tdap) 1959 Pneumococcal Vaccine: 50+ Years (2 of 2 - PCV20 or PCV21) 09/16/2016 09/16/2015 Cholesterol Screening (Lipid Panel) 08/30/2022 Falls Risk Assessment 08/30/2022 Medicare Annual Wellness Visit 08/30/2022 Social Influencers of Health Screening 08/30/2022 Hypertension/CHF/CAD Annual BMP Blood Test 09/12/2024 Depression Screening 10/01/2024 COVID-19 Vaccine ( season) 2025 07/22/2024, 09/05/2023, 07/04/2022, Additional history exists Influenza Vaccine (#1) 2025 , 07/04/2023, 06/24/2022, Additional history exists Osteoporosis Screening (Bone Density Screening) 05/17/2031 05/17/2021, 04/29/2019 Zoster Vaccines Completed 03/25/2020, 09/16/2019 RSV Immunization Adult Patients Completed 07/26/2023 HIB Vaccines Aged Out No longer eligi ble based on patient's age to complete this topic HPV Vaccines Aged Out No longer eligi ble based on patient's age to complete this topic Hepatitis A Vaccines Aged Out No long er eligible based on patient's age to complete this topic Hepatitis B Vaccines Aged Out No long er eligible based on patient's age to complete this topic IPV Vaccines Aged Out No longer eligi ble based on patient's age to complete this topic MMR Vaccines Aged Out No longer eligi ble based on patient's age to complete this topic Meningococcal ACWY Vaccine Aged Out N o longer eligible based on patient's age to complete this topic Meningococcal B Vaccine Aged Out No l onger eligible based on patient's age to complete this topic RSV Immunization Patients Under 20 months Aged Out No longer eligible based on patient's age to complete this topic Varicella Vaccines Aged Out No longer eligible based on patient's age to complete this topic Procedures Procedure Name Priority Date/Time Associated Diagnosis Comments MR CERVICAL SPINE WO CONTRAST Routine 07/16/2025 4:47 PM EDT Neck pain [facility] DEXA AXIAL SKELETON Routine 05/17/2021 10:34 AM EDT Encounter for screening for osteoporosis from Last 3 Months or Most Recently Relevant to Health Maintenance Results * MR Cervical Spine wo Contrast (07/16/2025 4:47 PM EDT) Anatomical Region Laterality Modality C-spine, Spine Magnetic Resonan ce 07/22/2025 10:5 9 AM EDT Impressions 07/22/2025 11:02 AM EDT Mild degenerative changes of the cervical spine. No disc herniation. No high-grade spinal or foraminal stenosis. -------- FINAL REPORT -------- Dictated By: Bravo Marcus Dictated Date: 07/22/2025 10:59 ET Assigned Physician: Bravo Marcus Reviewed and Electronically Signed By: Bravo Marcus Signed Date: 07/22/2025 11:02 ET Workstation ID: [id number] Transcribed By: Self Edit Transcribed Date: 07/22/2025 10:59 ET Narrative 07/22/2025 11:02 AM EDT PROCEDURE: MRI of the cervical spine without intravenous contrast. TECHNIQUE: Sagittal and axial multisequence MRI of the cervical spine without intravenous contrast administration. HISTORY: Neck pain COMPARISON: None. FINDINGS: Visualized portions of the brain are normal. There is a small mucous retention cyst along the floor of the left maxillary antrum. Normal paraspinous soft tissues. No suspicious marrow infiltrative lesion. The cord is normal in caliber and signal. Cervical disc levels: C2-3: Minimal degenerative irregularity of the endplates and facet joints. Mild posterior ligamentous hypertrophy. No spinal or foraminal stenosis. C3-4: Moderate posterior disc space height loss and mild infiltrate irregularity. Small bilateral uncovertebral spurs and mild bilateral facet arthropathy. No spinal or foraminal stenosis. C4-5: Minimal bilateral uncovertebral spurs. Slight anterolisthesis. Moderate bilateral facet arthropathy. No significant spinal or foraminal stenosis. C5-6: Mild endplate irregularity and disc space height loss. Minimal right central focal protrusion and mild bilateral facet arthropathy. Mild posterior ligamentous hypertrophy. No significant spinal or foraminal stenosis. C6-7: Mild endplate irregularity. Small symmetric disc bulge. Minimal bilateral facet arthropathy. No spinal or foraminal stenosis. C7-T1: Minimal degenerative irregularity of the left facet joint. No spinal or foraminal stenosis. Procedure Note Bravo Marcus MD - 07/22/2025 PROCEDURE: MRI of the cervical spine without intravenous contrast. TECHNIQUE: Sagittal and axial multisequence MRI of the cervical spinewithout intravenous contrast administration. HISTORY: Neck pain COMPARISON: None. FINDINGS: Visualized portions of the brain are normal. There is a small mucousretention cyst along the floor of the left maxillary antrum. Normal paraspinous soft tissues. No suspicious marrow infiltrative lesion. The cord is normal in caliber and signal. Cervical disc levels: C2-3: Minimal degenerative irregularity of the endplates and facet joints.Mild posterior ligamentous hypertrophy. No spinal or foraminalstenosis. C3-4: Moderate posterior disc space height loss and mild infiltrateirregularity. Small bilateral uncovertebral spurs and mild bilateralfacet arthropathy. No spinal or foraminal stenosis. C4-5: Minimal bilateral uncovertebral spurs. Slight anterolisthesis.Moderate bilateral facet arthropathy. No significant spinal or foraminalstenosis. C5-6: Mild endplate irregularity and disc space height loss. Minimalright central focal protrusion and mild bilateral facet arthropathy. Mildposterior ligamentous hypertrophy. No significant spinal or foraminalstenosis. C6-7: Mild endplate irregularity. Small symmetric disc bulge. Minimalbilateral facet arthropathy. No spinal or foraminal stenosis. C7-T1: Minimal degenerative irregularity of the left facet joint. Nospinal or foraminal stenosis. IMPRESSION: Mild degenerative changes of the cervical spine. No disc herniation. Nohigh- grade spinal or foraminal stenosis. -------- FINAL REPORT -------- Dictated By: Bravo Marcus Dictated Date: 07/22/2025 10:59 ET Assigned Physician: Bravo Marcus Reviewed and Electronically Signed By: Bravo Marcus Signed Date: 07/22/2025 11:02 ET Workstation ID: [id number] Transcribed By: Self Edit Transcribed Date: 07/22/2025 10:59 ET us Obdulio Colorado MD IMG MRI PROCEDURES Final Res ult * [facility] DEXA AXIAL SKELETON (05/17/2021 10:34 AM EDT) Anatomical Region Laterality Modality Mammography 05/17/2021 9:52 AM EDT Narrative 05/17/2021 10:34 AM EDT [facility] Diagnostic Imaging Department [address] [place] [address] Patient: HENRIQUE ABDULLAHI./Age/Sex: 1940 - 81 - F Unit#: [id number] [facility] Ordering Physician: OBDULIO COLORADO MD Josey Dexa Axial Skeleton - 05/17/211030 HISTORY: The patient is an 81-year-old postmenopausal female with clinical concern for metabolic bone disease. FINDINGS: Dual energy x-ray absorptiometry of the lumbar spine and femurs is performed. The mean bone mineral density at L1-L4 (with the exclusion of L2 and L3) is 0.920 gm/cm2 which is 79% of that of young normals and 105% of that of age matched controls. This yields a T-score of -2.0 and a Z-score of 0.4 which is diagnostic of osteopenia. The mean bone mineral density of the femurs bilaterally is 0.841 gm/cm2 which is 84% of that of young normals and 122% of that of age matched controls. This yields a T-score of -1.3 and a Z-score of 1.2 which is diagnostic of osteopenia. The T-score of the right femoral neck is -2.4 and that of the left femoral neck is -2.0 which is diagnostic of osteopenia. IMPRESSION: 1. Osteopenia. There has been an increase of 0.7% in bone mineral density in the lumbar spine since the prior examination of 04/29/2019. There has been a decrease of 5.8% in bone mineral density in the right femur and a decrease of 0.5% in bone mineral density in the left femur. 2. FRAX analysis yields a 10-year probability of major osteoporotic fracture of 16.3% and a 10-year probability of hip fracture of 6.1%. Code 66786 Dictating Physician: ROYCE KESSLER MD Electronically Signed by: ROYCE KESSLER MD Dic Date/Time: 05/17/21 1033 Sign date/Time: 05/17/21 1034 Procedure Note Royce Kessler MD - 09/27/2022 [facility] Diagnostic Imaging Department [address] [place] [address] Patient: LUDWIGMIYA SELLERSFAITH Rodriguez D.O.B./Age/Sex: 1940 - 81 - F Unit#: [id number] [facility]/Status[facility] Mnemonic[facility]Ordering Site: [facility] Ordering Physician: OBDULIO COLORADO MD Josey Dexa Axial Skeleton - 05/17/211030 HISTORY: The patient is an 81-year-old postmenopausal female withclinical concern for metabolic bone disease. FINDINGS: Dual energy x-ray absorptiometry of the lumbar spine and femursis performed. The mean bone mineral density at L1-L4 (with the exclusion ofL2 and L3) is 0.920 gm/cm2 which is 79% of that of young normals and 105% of thatof age matched controls. This yields a T-score of -2.0 and a Z-score of 0.4which is diagnostic of osteopenia. The mean bone mineral density of the femurs bilaterally is 0.841 gm/uj6vwbei is 84% of that of young normals and 122% of that of age matched controls.This yields a T-score of -1.3 and a Z-score of 1.2 which is diagnostic ofosteopenia. The T-score of the right femoral neck is -2.4 and that of the left femoralneck is -2.0 which is diagnostic of osteopenia. IMPRESSION: 1. Osteopenia. There has been an increase of 0.7% in bone mineral densityin the lumbar spine since the prior examination of 04/29/2019. There has elder decrease of 5.8% in bone mineral density in the right femur and a decreaseof 0.5% in bone mineral density in the left femur. 2. FRAX analysis yields a 10-year probability of major osteoporoticfracture of 16.3% and a 10-year probability of hip fracture of 6.1%. Code 57153 Dictating Physician: ROYCE KESSLER MD Electronically Signed by: ROYCE KESSLER MD Dic Date/Time: 05/17/21 1033 Sign date/Time: 05/17/21 1034 Obdulio Colorado MD IM BI PROCEDURES Final Resu lt from Last 3 Months or Most Recently Relevant to Health Maintenance Insurance PARAMJITYung [place], [place] [id number] MEDICARE [facility] Care Teams Reed Man Relationship Specialty Start Date End Date Obdulio Colorado MD [address] [place] [phone] PCP - General Internal Medicine 08/12/24
--- OUTSIDE RECORDS SUMMARY | 2025-08-25 15:03 | XMS_ITS | Continuity of Care Document ---
Author Organization [place] [facility], [facility] Address [address] [place] [phone] Care Team Providers Care Tool Room Machinist Name Role Phone LV COLORADO Primary Care Provider Assessment Encounter Date Assessment Date Assessment LastModified by Organization Details LastModified Time 06/26/2025 06/26/2025 Tube replacement was performed on [...] the procedure today - otherwise 6 months. [email or web address] Not available 06/26/2025 12:39:15 Plan of Treatment [...] Time Bilateral disorder of Eustachia n tubes [id number] 11854 Active 2017 Other specified disorders of Eustachia n tube, bilateral ; Note: Date Diagnosed : 8 10:37 AM (H69.83) Not Available [facility] 4 02:56:23 Impacted cerumen in right ear 94305421550 06555 Active 2017 Impacted cerumen, right ear; Note: Date Diagnosed : 8 10:31 AM (H61.21) Not Available [facility] 4 02:56:22 Disorder of right Eustachia n tube 18906020886 27517 Active 2020 Other specified disorders of Eustachia n tube, right ear; Note: Date Diagnosed : 01/20/2021 1:26 PM (H69.81) Not Available [facility] 4 02:56:24 Mixed conductiv e and sensorine ural hearing loss of right ear 47002643227 105 Active 2020 Mixed conductiv e and sensorine ural hearing loss, unilatera l, right ear with restricte d hearing on the contralat eral side; Note: Date Diagnosed : 01/20/2021 1:26 PM (H90.A31) CARLOS EDUARDO LUQUE MD [address] [address], [place], [phone] , [facility] - [facility] 5 11:19:47 Sensorine ural hearing 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 ear 01253814240 109 Active 2020 Sensorine ural hearing loss, unilatera l, left ear, with restricte d hearing on the contralat eral side; Note: Date Diagnosed : 01/20/2021 1:26 PM (H90.A22) Not Available [facility] 4 02:56:20 Sensorine ural hearing loss of bilateral ears 956291814 Active 2022 Sensorine ural hearing loss, bilateral ; Note: Date Diagnosed : 3 1:45 PM (H90.3) Not Available [facility] 4 02:56:22 Mixed conductiv e AND sensorine ural hearing loss 54351304 Active 2023 JUSTICE TIM [address] [facility],[address] [address], [place], [phone] , [place] - [facility] 4 13:49:29 Sensorine ural hearing loss 85060458 Active 2023 JUSTICE TIM [address] [facility],[address] [address], [facility] [place], [address] , [place] - [facility] 4 13:50:37 Acute serous otitis media of right ear 71629933389 85833 Active 2023 Venus darnell, [place] - [facility] 4 15:07:48 Chronic serous otitis media of right ear 516504418 Active 2023 CARLOS EDUARDO LUQUE MD [address] [facility],[address] [place] [address], [facility] [place], [address] , [place] - [facility] 5 11:19:51 Sensorine ural hearing loss of bilateral ears 793171459 Active 2023 Johanna darnell [place] - [facility] 4 10:52:55 Problem Notes None recorded. Procedures Surgical History Date Name Laterality Status Provider Name and Address Organization Details Recorded Time 08/07/20 25 Air only Audio - 97352 completed JUSTICE HERMAN [address] [facility],[address], [phone], [place] - [facility] 08/07/2025 11:36:21 08/07/20 25 Tympanometry - 32371 completed JUSTICE HERMAN [address] [facility],[address], [address], [place] - [facility] 08/07/2025 11:36:26 06/26/20 25 Myringotomy w/Placement of Tube right completed CARLOS EDUARDO LUQUE MD [address] [facility],[address], [address], [place] - [facility] 06/26/2025 12:38:03 03/30/20 25 Air only Audio - 19153 completed JUSTICE HERMAN [address] [facility],[address], [address], [place] - [facility] 03/30/2025 11:07:55 03/30/20 25 Tympanometry - 14055 completed ABHINAV LANDAVERDE, AUD [address] [facility],[address] [address], [place], [address], [facility] - [facility] 03/30/2025 11:08:01 09/29/20 24 Air & Speech Audio with Tymps - 06762, 53240 & 51987 completed Johanna Sanchez [place] - [facility] 09/29/2024 10:52:26 09/01/20 24 Myringotomy w/Placement of Tube right completed CARLOS EDUARDO LUQUE MD [address] [facility], [place], [address], [facility] - [facility] 09/01/2024 10:42:38 06/20/20 24 Comp Audio with Tymps - 91871 & 63999 completed ELSA GARZA, AUD [address] [facility],[address] [address], [place], [address], [facility] 06/20/2024 13:49:16 Imaging Results None recorded. Procedure Notes None recorded. Medical Equipment None Reported. Allergies Allergen ID Allergen Name Allergen Category Reaction Reaction Severity Criticality Documentation Date Start Date Code Code System Note Provider Name and Address Organization Details Recorded Time 940535 amoxicill in medicatio n other Not available Not available 02/12/2024 723 RxNorm React ion: unkno wn, unspe cifie d;; Not Available [facility] 4 01:17:07 650492 penicilli n V potassium medicatio n other Not available Not available 02/12/202478787 5 RxNorm React ion: unkno wn, unspe cifie d;; Not Available [facility] 4 01:17:08 795911 codeine sulfate medicatio n other Not available Not available 02/12/2024 19653 RxNorm React ion: unkno wn, unspe cifie d;; Not Available [facility] 4 01:17:08 Medications Name Sig Start Date Stop Date Status Note LastModified by Organization Details LastModified Time atorvasta tin 40 mg tablet TAKE 1 TABLET BY MOUTH DAILY active Not Available Not Available No t Available primidone 50 mg tablet 06/20 completed Medicati on ID: [id number] D uration Value: 30 Brand Name: primidon [...] drops Apply 06/20 completed Medicati on ID: [id number] B rand Name: ofloxaci n Send Method: [...] layed release 2017 active Medicati on ID: [id number] B rand Name: Aspirin Low Dose Sen d Method: E-Prescr ibed Sub s Allowed: subs OK Medic ationGen ericName : Aspirin Low Dose Not Available Not Available Not Available amlodipin e 2.5 mg tablet TAKE 1 TABLET BY MOUTH EVERY DAY active Not Available Not Available No t Available simvastat in 40 mg tablet 05/04 completed Medicati on ID: [id number] D uration Value: 90 Brand Name: simvasta [...] unit) capsule 06/20 completed Medicati on ID: [id number] B rand Name: Vitamin D3 Send Method: [...] Updated DateTime 06/26/2025 154.94 cm 21.9 kg/m2 81286.71 g Roula Gibson [place] - [facility] 06/26/2025 11:21:24 Social History None recorded. Functional Status None recorded. Mental Status None recorded. Family History Nothing Reported. Medical History No medical history recorded. Gynecological HistoryNo gynecological history recorded. Obstetrics History GPAL:G 0 P 0 0 0 0 Past Encounters Encounter ID Performer Location Encounter Start Date Encounter Closed Date Diagnosis/Indication Diagnosis SNOMED-CT Code Diagnosis ICD10 Code Diagnosis IMO Codes Diagnosis Note [id number] CARLOS EDUARDO LUQUE MD [facility] [address] [phone] 06/26/2025 11:13:39 06/26/2025 11:40:32 Mixed conductive and sensorineural hearing loss of right ear [id number] 9105 H90.A31 Chronic se sakshi otitis media of right ear 690852169 H65.21 Health Concerns Section Related Observation LastModified by Organization Detai ls LastModified Time None Recorded Concern Status LastModified by Organization Details LastModified Time None Recorded Payers Encounter Date Sequence Insurance Name Policy Number Policy Johnson Covered Member ID Johnson Member ID Guarantor Name 06/26/2025 2 [employer] (MEDICARE SUPPLEMENT) Estelle Abdullahi [id number] Estelle Abdullahi 06/26/2025 1 [place]IC[place]: [employer] Estelle Abdullahi [id number] Estelle Abdullahi Notes Date Note Type Note Provider Name and Address Organization Details Recorded Time 06/26/2025 text/html She has had tubes placed in 2020, May 2023, August 2024. She was last seen a couple months ago and noted to have an extruded tube and recurrence of the middle ear effusion. She is not hearing well on the right. CARLOS EDUARDO LUQUE MD [address] [place] [address], [phone], [facility] - [facility] 06/26/2025 12:39:30 OBGyn Episode No OBEpisode recorded.
--- OUTSIDE RECORDS SUMMARY | 2025-08-25 15:04 | XMS_ITS | Continuity of Care Document ---
Author Organization [place] - [facility], [facility] Address [address] [place] [id number] Care Team Providers Care Sales Enablement Manager Name Role Phone [place] Primary Care [...] Time Bilateral disorder of Eustachia n tubes [id number] Active 2017 Other specified disorders of Eustachia n tube, bilateral ; Note: Date Diagnosed : 8 10:37 AM (H69.83) Not Available [facility] 4 02:56:23 Impacted cerumen in right ear 41582980118 Active 2017 Impacted cerumen, right ear; Note: Date Diagnosed : 8 10:31 AM (H61.21) Not Available [facility] 4 02:56:22 Disorder of right Eustachia n tube [id number] 28298 Active 2020 Other specified disorders of Eustachia n tube, right ear; Note: Date Diagnosed : 01/20/2021 1:26 PM (H69.81) Not Available [facility] 4 02:56:24 Mixed conductiv e and sensorine ural hearing loss of right ear 64284231974 105 Active 2020 Mixed conductiv e and sensorine ural hearing loss, unilatera l, right ear with restricte d hearing on the contralat eral side; Note: Date Diagnosed : 01/20/2021 1:26 PM (H90.A31) CARLOS EDUARDO LUQUE MD [address] [facility],[place] [address], [place], [address] , [place] - [facility] 5 11:19:47 Sensorine ural hearing 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 ear 10728409662 109 Active 2020 Sensorine ural hearing loss, unilatera l, left ear, with restricte d hearing on the contralat eral side; Note: Date Diagnosed : 01/20/2021 1:26 PM (H90.A22) Not Available [facility] 4 02:56:20 Sensorine ural hearing loss of bilateral ears 896149832 Active 2022 Sensorine ural hearing loss, bilateral ; Note: Date Diagnosed : 3 1:45 PM (H90.3) Not Available [facility] 4 02:56:22 Mixed conductiv e AND sensorine ural hearing loss 99918500 Active 2023 ELSA GARZA, JUSTICE [address] [facility],[place] [address], [place], [address] , [place] - [facility] 4 13:49:29 Sensorine ural hearing loss 28610055 Active 2023 ELSA GARAZ, AUD [address] [facility],[place] [address], [place], [address] , [facility] - [facility] 4 13:50:37 Acute serous otitis media of right ear 21184547722 98651 Active 2023 Venus darnell [place] - [facility] 4 15:07:48 Chronic serous otitis media of right ear 546692459 Active 2023 CARLOS EDUARDO LUQUE MD [address] [place] [address],[address], [address] , [facility] - [facility] 5 11:19:51 Sensorine ural hearing loss of bilateral ears 840801148 Active 2023 Johanna darnell [place] - [facility] 4 10:52:55 Problem Notes None recorded. Procedures Surgical History Date Name Laterality Status Provider Name and Address Organization Details Recorded Time 08/07/20 25 Air only Audio - 89137 completed JUSTICE HERMAN [address] [place] [address],[address], [address], [facility] - [facility] 08/07/2025 11:36:21 08/07/20 25 Tympanometry - 00968 completed JUSTICE HERMAN [address] [place] [address],[address], [address], [facility] - [facility] 08/07/2025 11:36:26 06/26/20 25 Myringotomy w/Placement of Tube right completed CARLOS EDUARDO LUQUE MD [address] [facility],[address], [address], [facility] - [facility] 06/26/2025 12:38:03 03/30/20 25 Air only Audio - 96360 completed JSUTICE HERMAN [address] [facility],[address], [address], [facility] - [facility] 03/30/2025 11:07:55 03/30/20 25 Tympanometry - 90017 completed ABHINAV LANDAVERDE AUD [address] [facility],[address], [address], [facility] - [facility] 03/30/2025 11:08:01 09/29/20 24 Air & Speech Audio with Tymps - 52387, 49612 & 09730 completed Johanna Sanchez [place] [facility] 09/29/2024 10:52:26 09/01/20 24 Myringotomy w/Placement of Tube right completed CARLOS EDUARDO LUQUE MD [address] [facility] [address], [place], [address], [place] - [facility] 09/01/2024 10:42:38 06/20/20 24 Comp Audio with Tymps - 34890 & 85796 completed JUSTICE TIM [address] [facility] [address], [place], [address], [place] - [facility] 06/20/2024 13:49:16 Imaging Results None recorded. Procedure Notes None recorded. Medical Equipment None Reported. Allergies Allergen ID Allergen Name Allergen Category Reaction Reaction Severity Criticality Documentation Date Start Date Code Code System Note Provider Name and Address Organization Details Recorded Time 514488 amoxicill in medicatio n other Not available Not available 02/12/2024 723 RxNorm React ion: unkno wn, unspe cifie d;; Not Available [facility] 4 01:17:07 670974 penicilli n V potassium medicatio n other Not available Not available 02/12/2024 12247 5 RxNorm React ion: unkno wn, unspe cifie d;; Not Available [facility] 4 01:17:08 139586 codeine sulfate medicatio n other Not available Not available 02/12/2024 66881 RxNorm React ion: unkno wn, unspe cifie d;; Not Available [facility] 4 01:17:08 Medications Name Sig Start Date Stop Date Status Note LastModified by Organization Details LastModified Time atorvasta tin 40 mg tablet TAKE 1 TABLET BY MOUTH DAILY active Not Available Not Available No t Available primidone 50 mg tablet 06/20 completed Medicati on ID: [id number] D uration Value: 30 Brand Name: primidon [...] drops Apply 06/20 completed Medicati on ID: 881297 B rand Name: ofloxaci n Send Method: [...] layed release 2017 active Medicati on ID: 872052 B rand Name: Aspirin Low Dose Sen d Method: E-Prescr ibed Sub s Allowed: subs OK Medic ationGen ericName : Aspirin Low Dose Not Available Not Available Not Available amlodipin e 2.5 mg tablet TAKE 1 TABLET BY MOUTH EVERY DAY active Not Available Not Available No t Available simvastat in 40 mg tablet 05/04 completed Medicati on ID: 573559 D uration Value: 90 Brand Name: simvasta [...] unit) capsule 06/20 completed Medicati on ID: [id number] B rand Name: Vitamin D3 Send Method: [...] ICD10 Code Diagnosis IMO Codes Diagnosis Note [id number] CARLOS EDUARDO LUQUE MD [facility] [address] [address] 08/07/2025 10:45:56 08/07/2025 11:43:06 Disorder of right Eustachian tube [id number] 460372 H69.91 85-year-ol d female presents today for follow-up. Right tube is in place and patent. Thresholds are now similar to the left. She is a borderline candidate for amplificat ion but feels she is doing well. Follow-up in 6 months. Sensorineu ral hearing loss of bilateral ears [id number] H90.3 Audiologic al evaluation results: Right ear: Normal sloping to severe sensorineu ral hearing loss. Tympanomet ry: Right Ear:Type B with large volume [id number] JUSTICE HERMAN [facility] [address] [address] 08/07/2025 10:46:15 08/07/2025 13:58:14 Sensorineural hearing loss of bilateral ears [id number] H90.3 Audiologic al evaluation results: Right ear: [...] 08/07/2025 2 [employer] (MEDICARE SUPPLEMENT) Estelle Abdullahi [id number] Estelle Abdullahi 08/07/2025 1 MEDICARE B-[place]: [employer] Estelle Abdullahi [id number] Estelle Abdullahi Notes Date Note Type Note [...] on the right. CARLOS EDUARDO LUQUE MD [address] [place] [address], [address], [facility] - [facility] 08/07/2025 11:45:08 OBGyn Episode No OBEpisode recorded.
== END 2025-08-25 11:51 | disposition home or self-care (01) ==
LOC: HO.HSM 11:22
PROVIDERS: PCP Internal Medicine; Visit Provider Psychiatry & Neurology Neurology
DX: G25.0 Essential tremor (principal)
CPT/HCPCS: 99214

== ENCOUNTER → 2025-08-25 11:22 | Outpatient (BNVA) | payer MEDICARE, SELFPAY | PROVIDERS: PCP Internal Medicine; Visit Provider Psychiatry & Neurology Neurology | DX: G25.0 Essential tremor (principal) | CPT/HCPCS: 99212 ==